=== PATIENT | male | born 1985 ===

== ENCOUNTER 2017-09-17 13:22 | Emergency (ER) | payer OTHER ==
[~2017-09-17] VITALS: Ht 185.4 cm; Wt 93.8 kg
[2017-09-17 13:25] VITALS: TEMP 37; Ht 185.4 cm; Wt 93.8 kg
[2017-09-17] MEDS ORDERED: OXYCODONE HCL IR 5 MG TAB (IMMEDIATE RELEASE) PO STA (13:37)
[2017-09-17] MEDS ORDERED: LIDOCAINE 1% BUFFERED INJ 5 ML VIAL INFIL ONE (13:45)
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
[2017-09-17 15:00] VITALS: BP 124/76; PULSE 62; O2SAT 98
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
== END 2017-09-17 15:19 | disposition home or self-care (01) ==
LOC: C.EDB 13:25
DX: S01.01XA Laceration without foreign body of scalp, initial encounter (principal); S06.0X0A Concussion without loss of consciousness, initial encounter; Y00.XXXA Assault by blunt object, initial encounter; Y92.149 Unspecified place in prison as the place of occurrence of the external cause; J01.10 Acute frontal sinusitis, unspecified